=== PATIENT | male | born 1975 | race Hispanic/Latino ===

== ENCOUNTER 2018-10-31 08:48 | Inpatient (IN) | payer BC | END 2018-11-02 18:02 | disposition home or self-care (01) | LOC: EDH 08:48 → EDHIP 08:49 → 4CH 16:56 | DX: K57.32 Diverticulitis of large intestine without perforation or abscess without bleeding (principal); R31.0 Gross hematuria; N28.1 Cyst of kidney, acquired ==

== ENCOUNTER 2021-04-07 15:08 | Inpatient (IN) | payer BC, OTHER ==
[~2021-04-07] VITALS: Ht 182.9 cm; Wt 95.8 kg
[~2021-04-07 15:08] MED LIST: LEVO500T2 PO; METR-172 PO; TYL3 PO
[2021-04-07 15:35] LABS: APPEARANCE,URINE Cloudy (CLEAR); BILIRUBIN,URINE Small (NEGATIVE); COLOR,URINE Orange (YELLOW); GLUCOSE, URINE (UA) Negative (NEGATIVE); KETONES,URINE Trace mg/dL (NEGATIVE); LEUKOCYTE ESTERASE ,URINE Trace (NEGATIVE); NITRATE,URINE Negative (NEGATIVE); OCCULT BLOOD,URINE Moderate (NEGATIVE); PROTEIN,URINE POS 1+ mg/dL (NEGATIVE)
[2021-04-07 15:44] LABS: AMPHET/METH SCREEN,URINE NEGATIVE (NEGATIVE); BARBITURATE SCREEN, URINE NEGATIVE (NEGATIVE); BENZODIAZEPINES SCREEN,URINE NEGATIVE (NEGATIVE); CANNABINOID SCREEN,URINE NEGATIVE (NEGATIVE); COCAINE SCREEN,URINE NEGATIVE (NEGATIVE); OPIATE SCREEN,URINE NEGATIVE (NEGATIVE); PHENCYCLIDINE SCREEN,URINE NEGATIVE (NEGATIVE)
[2021-04-07 16:13] LABS: BACTERIA,URINE Few /HPF (None Seen); MUCUS,URINE Moderate LPF (None Seen); SQUAMOUS EPITHELIAL CELL,UR Rare /HPF (0-2); WBC,URINE 0-1 /HPF (0-1)
[2021-04-07 16:14] LABS: HEMATOCRIT 49.8 % (42-54); MEAN CORPUSCULAR HEMOGLOBIN 31.2 pg (27.0-33.0); MEAN CORPUSCULAR HGB CONC 34.9 g/dL (32.0-36.0); MEAN CORPUSCULAR VOLUME 89.4 fL (79-99); PLATELET COUNT (AUTO) 300 K/uL (130-400); RED BLOOD CELL COUNT(AUTO) 5.57 MIL/uL (4.50-6.20); RED CELL DISTRIBUTION WIDTH 12.1 % (11.0-15.5)
[2021-04-07 16:28] LABS: BAND NEUTROPHILS % (MANUAL) 4 % (0-2); MAN.DIFF COMMENT-IMPRESSION MANUAL DIFFERENTIAL; MONOCYTES % (MANUAL) 5 % (2-9); REACTIVE LYMPHOCYTES 7 % (0-0); SEGMENTED NEUTROPHILS % 84 % (40-70)
[2021-04-07 16:49] LABS: CREATININE 1.2 mg/dL (0.5-1.5); POTASSIUM 4.2 mmol/L (3.5-5.1)
[2021-04-07 16:56] LABS: ALBUMIN 4.3 g/dL (3.5-5.0); BILIRUBIN,TOTAL 3.2 mg/dL (0.2-1.0); TOTAL PROTEIN, SERUM 8.5 g/dL (6.0-8.3)
[2021-04-07] MEDS ORDERED: 0.9%NACL 1000ML 3,000 ML IV ONE (17:12)
[2021-04-07] MEDS ORDERED: LACTATED RINGERS 1000ML 2,328 ML IV ONE ×2 (17:30→20:30)
[2021-04-07 18:11] LABS: INR 1.11 (0.85-1.15)
[2021-04-07 18:12] LABS: PARTIAL THROMBOPLASTIN TIME 27.9 SEC (26.3-35.5)
[2021-04-07] MEDS ORDERED: ONDANSETRON 4MG INJ IVP ONE (18:30)
[2021-04-07] MEDS ORDERED: ZOSYN 3.375GM+NS 50ML 50 ML IV ONE (18:30)
[2021-04-07] MEDS ORDERED: ACETAMINOPHEN 500 MG TABLET PO ONE (18:30)
[2021-04-07] MEDS ORDERED: MORPHINE 4 MG SYG IV ONE (18:30)
[2021-04-07] MEDS ORDERED: MORPHINE 4 MG SYG ONE (19:55)
[2021-04-07] MEDS ORDERED: ONDANSETRON 4MG INJ ONE (20:04)
[2021-04-07] MEDS ORDERED: HYDROCODONE/ACETAMINOPHEN 5/325 MG TAB PO PRN (20:30)
[2021-04-07] MEDS ORDERED: MORPHINE 4 MG SYG IV PRN (20:30)
[2021-04-07] MEDS ORDERED: MORPHINE 2 MG SYG IV PRN (20:30)
[2021-04-07] MEDS ORDERED: ACETAMINOPHEN 325 MG TAB PO PRN (20:30)
[2021-04-07] MEDS ORDERED: ONDANSETRON 4MG INJ IV PRN (20:30)
[2021-04-07] MEDS: LACTATED RINGERS 1000ML 1,000 ML IV SCH (20:48)
[2021-04-07] MEDS: METRONIDAZOLE 500 MG TABLET PO SCH (21:19)
[2021-04-07] MEDS: FAMOTIDINE 20MG VIAL IV SCH (21:19)
[2021-04-07] MEDS: LEVOFLOXACIN 750 MG/D5W 150 ML 150 ML IV SCH (21:19)
[2021-04-08] MEDS: LACTATED RINGERS 1000ML 1,000 ML IV SCH (02:54)
[2021-04-08 06:10] LABS: BASOPHILS % (AUTO) 0.3 % (0.0-5.0); EOSINOPHILS % (AUTO) 0.2 % (0.0-8.0); HEMATOCRIT 41.1 % (42-54); LYMPHOCYTES % (AUTO) 8.8 % (21.0-51.0); MEAN CORPUSCULAR HEMOGLOBIN 30.8 pg (27.0-33.0); MEAN CORPUSCULAR HGB CONC 33.8 g/dL (32.0-36.0); MEAN CORPUSCULAR VOLUME 91.1 fL (79-99); MONOCYTES % (AUTO) 3.4 % (3.0-13.0); NEUTROPHILS % (AUTO) 86.9 % (40.0-77.0); PLATELET COUNT (AUTO) 219 K/uL (130-400); RED BLOOD CELL COUNT(AUTO) 4.51 MIL/uL (4.50-6.20)
[2021-04-08 06:29] LABS: CREATININE 0.9 mg/dL (0.5-1.5); MAGNESIUM 1.9 mg/dL (1.80-2.40); PHOSPHORUS 3.1 mg/dL (2.5-4.9); POTASSIUM 4.1 mmol/L (3.5-5.1)
[2021-04-08] MEDS ORDERED: OXYCODONE HCL 5 MG TAB PO PRN (07:30)
[2021-04-08] MEDS: ACETAMINOPHEN 500 MG TABLET PO SCH ×3 (07:30→20:43)
[2021-04-08] MEDS: METRONIDAZOLE 500 MG TABLET PO SCH ×3 (09:35→21:11)
[2021-04-08] MEDS: FAMOTIDINE 20MG VIAL IV SCH ×2 (09:35→21:11)
[2021-04-08] MEDS: 0.9%NACL 1000ML 1,000 ML IV SCH ×2 (09:44→19:28)
[2021-04-08] MEDS: OXYCODONE HCL 5 MG TAB PO PRN (10:31)
[2021-04-08] MEDS: KETOROLAC 30MG VIAL (30MG/ML) IV PRN (15:23)
[2021-04-08 20:00] VITALS: BP 158/80
[2021-04-08] MEDS: LEVOFLOXACIN 750 MG/D5W 150 ML 150 ML IV SCH (21:11)
[2021-04-09] VITALS (7 sets, daily range): BP systolic 137–159; BP diastolic 67–102
[2021-04-09] MEDS: ACETAMINOPHEN 500 MG TABLET PO SCH ×3 (00:38→14:43)
[2021-04-09] MEDS: KETOROLAC 30MG VIAL (30MG/ML) IV PRN ×2 (02:15→20:40)
[2021-04-09] MEDS: 0.9%NACL 1000ML 1,000 ML IV SCH (03:20)
[2021-04-09 05:24] LABS: HEMATOCRIT 38.8 % (42-54); MEAN CORPUSCULAR HEMOGLOBIN 31.3 pg (27.0-33.0); MEAN CORPUSCULAR HGB CONC 33.5 g/dL (32.0-36.0); MEAN CORPUSCULAR VOLUME 93.5 fL (79-99); RED BLOOD CELL COUNT(AUTO) 4.15 MIL/uL (4.50-6.20); RED CELL DISTRIBUTION WIDTH 11.9 % (11.0-15.5); WHITE BLOOD COUNT (AUTO) 13.3 K/uL (4.8-10.8)
[2021-04-09 05:47] LABS: CREATININE 0.9 mg/dL (0.5-1.5)
[2021-04-09 06:30] LABS: CRP QUANTITATIVE 345.6 mg/L (0.00-9.0)
[2021-04-09] MEDS: FAMOTIDINE 20MG VIAL IV SCH ×2 (08:26→20:37)
[2021-04-09] MEDS: METRONIDAZOLE 500 MG TABLET PO SCH ×3 (08:26→20:38)
[2021-04-09] MEDS: OXYCODONE HCL 5 MG TAB PO PRN (08:45)
[2021-04-09] MEDS: DEXTROSE 5 %-0.45 % NACL 1,000 ML IV SCH (18:01)
[2021-04-09] MEDS: LEVOFLOXACIN 750 MG/D5W 150 ML 150 ML IV SCH (20:37)
[2021-04-09] MEDS: TAMSULOSIN HCL 0.4 MG CAP.ER.24H PO SCH (20:38)
[2021-04-09] MEDS ORDERED: METRONIDAZOLE 500MG/100ML BAG 100 ML IVPB SCH (22:00)
[2021-04-10] MEDS: DEXTROSE 5 %-0.45 % NACL 1,000 ML IV SCH ×3 (02:15→16:27)
[2021-04-10 04:00] VITALS: BP 146/90
[2021-04-10 05:10] LABS: BASOPHILS % (AUTO) 0.5 % (0.0-5.0); EOSINOPHILS % (AUTO) 1.5 % (0.0-8.0); HEMATOCRIT 40.7 % (42-54); LYMPHOCYTES % (AUTO) 17.4 % (21.0-51.0); MEAN CORPUSCULAR HEMOGLOBIN 30.3 pg (27.0-33.0); MEAN CORPUSCULAR HGB CONC 33.2 g/dL (32.0-36.0); MEAN CORPUSCULAR VOLUME 91.3 fL (79-99); MONOCYTES % (AUTO) 6.8 % (3.0-13.0); PLATELET COUNT (AUTO) 261 K/uL (130-400); RED BLOOD CELL COUNT(AUTO) 4.46 MIL/uL (4.50-6.20); RED CELL DISTRIBUTION WIDTH 11.7 % (11.0-15.5); WHITE BLOOD COUNT (AUTO) 8.5 K/uL (4.8-10.8)
[2021-04-10 05:43] LABS: ALBUMIN 2.7 g/dL (3.5-5.0); BILIRUBIN,TOTAL 1.2 mg/dL (0.2-1.0); CREATININE 0.9 mg/dL (0.5-1.5); MAGNESIUM 1.9 mg/dL (1.80-2.40); PHOSPHORUS 3.6 mg/dL (2.5-4.9); POTASSIUM 3.1 mmol/L (3.5-5.1); TOTAL PROTEIN, SERUM 6.8 g/dL (6.0-8.3)
[2021-04-10 05:53] LABS: CRP QUANTITATIVE 265.5 mg/L (0.00-9.0)
[2021-04-10 06:23] LABS: ERYTHROCYTE SEDIMENTATION RATE 85 MM/HR (0-15)
[2021-04-10 07:48] VITALS: BP 145/84
[2021-04-10] MEDS: FAMOTIDINE 20MG VIAL IV SCH (08:15)
[2021-04-10] MEDS: METRONIDAZOLE 500 MG TABLET PO SCH (08:16)
[2021-04-10] MEDS: KETOROLAC 30MG VIAL (30MG/ML) IV PRN (08:17)
[2021-04-10] MEDS ORDERED: KCL 20 MEQ ERTAB PO SCH ×2 (09:30→14:00)
[2021-04-10] MEDS ORDERED: ENOXAPARIN SODIUM 40 MG/0.4 ML SYRINGE SQ SCH (09:30)
[2021-04-10] MEDS: FAMOTIDINE 20MG TAB PO SCH ×2 (10:52→20:04)
[2021-04-10 11:36] VITALS: BP 134/87
[2021-04-10] MEDS: ZOSYN 3.375GM +NS 50ML IV SCH ×2 (12:59→22:12)
[2021-04-10 15:48] VITALS: BP 137/101
[2021-04-10] MEDS: TAMSULOSIN HCL 0.4 MG CAP.ER.24H PO SCH (20:04)
[2021-04-10] MEDS: LEVOFLOXACIN 750 MG/D5W 150 ML 150 ML IV SCH (20:04)
[2021-04-10 20:21] VITALS: BP 154/93
[2021-04-10] MEDS ORDERED: LOPERAMIDE HCL 2 MG CAP PO PRN (22:00)
[2021-04-10 23:49] VITALS: BP 121/74
[2021-04-11] MEDS: DEXTROSE 5 %-0.45 % NACL 1,000 ML IV SCH ×3 (00:59→16:28)
[2021-04-11 04:08] VITALS: BP 123/86
[2021-04-11 05:16] LABS: BASOPHILS % (AUTO) 0.4 % (0.0-5.0); EOSINOPHILS % (AUTO) 0.9 % (0.0-8.0); HEMATOCRIT 38.8 % (42-54); LYMPHOCYTES % (AUTO) 10.3 % (21.0-51.0); MEAN CORPUSCULAR HEMOGLOBIN 30.9 pg (27.0-33.0); MEAN CORPUSCULAR HGB CONC 33.8 g/dL (32.0-36.0); MEAN CORPUSCULAR VOLUME 91.5 fL (79-99); MONOCYTES % (AUTO) 7.2 % (3.0-13.0); NEUTROPHILS % (AUTO) 80.1 % (40.0-77.0); PLATELET COUNT (AUTO) 286 K/uL (130-400); RED BLOOD CELL COUNT(AUTO) 4.24 MIL/uL (4.50-6.20); RED CELL DISTRIBUTION WIDTH 11.8 % (11.0-15.5)
[2021-04-11] MEDS: ZOSYN 3.375GM +NS 50ML IV SCH ×3 (05:16→22:27)
[2021-04-11 05:41] LABS: CREATININE 0.9 mg/dL (0.5-1.5); CRP QUANTITATIVE 120.9 mg/L (0.00-9.0); POTASSIUM 3.6 mmol/L (3.5-5.1)
[2021-04-11] MEDS: OXYCODONE HCL 5 MG TAB PO PRN ×2 (07:43→16:52)
[2021-04-11] MEDS: FAMOTIDINE 20MG TAB PO SCH ×2 (07:44→20:08)
[2021-04-11 08:00] VITALS: BP 143/97
[2021-04-11] MEDS: ENOXAPARIN SODIUM 40 MG/0.4 ML SYRINGE SQ SCH (08:02)
[2021-04-11 12:00] VITALS: BP 118/87
[2021-04-11 16:00] VITALS: BP 159/98
[2021-04-11 19:25] VITALS: BP 158/96
[2021-04-11] MEDS: LEVOFLOXACIN 750 MG/D5W 150 ML 150 ML IV SCH (20:08)
[2021-04-11] MEDS: TAMSULOSIN HCL 0.4 MG CAP.ER.24H PO SCH (20:08)
[2021-04-11] MEDS: KETOROLAC 30MG VIAL (30MG/ML) IV PRN (20:14)
[2021-04-11 23:54] VITALS: BP 113/77
[2021-04-12] MEDS: DEXTROSE 5 %-0.45 % NACL 1,000 ML IV SCH ×2 (01:00→13:09)
[2021-04-12 04:06] VITALS: BP 134/76
[2021-04-12 04:47] LABS: BASOPHILS % (AUTO) 0.6 % (0.0-5.0); EOSINOPHILS % (AUTO) 1.6 % (0.0-8.0); HEMATOCRIT 38.9 % (42-54); LYMPHOCYTES % (AUTO) 16.9 % (21.0-51.0); MEAN CORPUSCULAR HEMOGLOBIN 30.8 pg (27.0-33.0); MEAN CORPUSCULAR HGB CONC 33.7 g/dL (32.0-36.0); MEAN CORPUSCULAR VOLUME 91.5 fL (79-99); MONOCYTES % (AUTO) 8.2 % (3.0-13.0); PLATELET COUNT (AUTO) 298 K/uL (130-400); RED BLOOD CELL COUNT(AUTO) 4.25 MIL/uL (4.50-6.20); RED CELL DISTRIBUTION WIDTH 11.7 % (11.0-15.5)
[2021-04-12 05:00] LABS: CREATININE 0.9 mg/dL (0.5-1.5); CRP QUANTITATIVE 109.1 mg/L (0.00-9.0); POTASSIUM 3.5 mmol/L (3.5-5.1)
[2021-04-12] MEDS: ZOSYN 3.375GM +NS 50ML IV SCH ×3 (05:50→20:50)
[2021-04-12 08:16] VITALS: BP 144/76
[2021-04-12] MEDS: ENOXAPARIN SODIUM 40 MG/0.4 ML SYRINGE SQ SCH (08:25)
[2021-04-12] MEDS: FAMOTIDINE 20MG TAB PO SCH ×2 (09:00→20:49)
[2021-04-12 11:50] VITALS: BP 131/90
[2021-04-12 15:59] VITALS: BP 139/95
[2021-04-12 20:00] VITALS: BP 120/82
[2021-04-12] MEDS: TAMSULOSIN HCL 0.4 MG CAP.ER.24H PO SCH (20:50)
[2021-04-12] MEDS: LEVOFLOXACIN 750 MG/D5W 150 ML 150 ML IV SCH (20:50)
[2021-04-12] MEDS: KETOROLAC 30MG VIAL (30MG/ML) IV PRN (22:29)
[2021-04-13 00:01] VITALS: BP 121/84
[2021-04-13 04:03] VITALS: BP 121/73
[2021-04-13] MEDS: ZOSYN 3.375GM +NS 50ML IV SCH ×2 (05:24→13:00)
[2021-04-13] MEDS: ENOXAPARIN SODIUM 40 MG/0.4 ML SYRINGE SQ SCH (08:37)
[2021-04-13] MEDS: FAMOTIDINE 20MG TAB PO SCH (08:37)
[2021-04-13] MEDS: DEXTROSE 5 %-0.45 % NACL 1,000 ML IV SCH (08:37)
[2021-04-13 08:41] VITALS: BP 143/94
[2021-04-13 12:23] VITALS: BP 135/95
[2021-04-13] MEDS ORDERED: TAMS-1 PO (13:19)
[2021-04-13] MEDS ORDERED: METR-172 PO (13:19)
[2021-04-13] MEDS ORDERED: CIPR500T10 PO (13:19)
[2021-04-13] MEDS ORDERED: IBUP-2077 PO (13:19)
== END 2021-04-13 15:40 | disposition home or self-care (01) | DRG 872 ==
LOC: EDH 15:08 → EDHIP 20:01 → 4DH 04-08 21:12
PROVIDERS: ADMIT Hospitalist; ATTEND Hospitalist
DX: A41.9 Sepsis, unspecified organism (principal); K57.92 Diverticulitis of intestine, part unspecified, without perforation or abscess without bleeding; E87.6 Hypokalemia; K59.00 Constipation, unspecified; N13.9 Obstructive and reflux uropathy, unspecified; Z87.442 Personal history of urinary calculi; Z86.61 Personal history of infections of the central nervous system
CPT/HCPCS: 36415; 74176; 80048; 80053; 80305; 81001; 82550; 83605; 83735; 84100; 84145; 84484; 85025; 85027; 85610; 85651; 85730; 86140; 86850; 86900; 86901; 87040; 87046; 87088; 87177; 87507; 93005; G0378; J1650; J1885; J1956; J2270; J2405; J2543; J3490; J7030; J7042; J7120